=== PATIENT | female | born 2000 ===

== ENCOUNTER 2021-10-27 05:46 | Emergency (ER) | payer MEDICAID ==
[~2021-10-27] VITALS: Ht 160 cm; Wt 107.5 kg
[2021-10-27 07:32] VITALS: BP 121/67
== END 2021-10-27 07:32 | disposition home or self-care (01) ==
LOC: ER 05:46
DX: S60.022A Contusion of left index finger without damage to nail, initial encounter (principal); W23.0XXA Caught, crushed, jammed, or pinched between moving objects, initial encounter; Y93.89 Activity, other specified; Y92.89 Other specified places as the place of occurrence of the external cause; Y99.8 Other external cause status
CPT/HCPCS: 73130

== ENCOUNTER 2022-10-16 04:47 | Emergency (ER) | payer MEDICAID ==
[~2022-10-16] VITALS: Ht 160 cm; Wt 115.0 kg
[2022-10-16 06:41] VITALS: BP 99/73
[2022-10-16] MEDS ORDERED: KETOROLAC TROMETH 60MG/2ML VIAL IM ONE (07:15)
== END 2022-10-16 07:47 | disposition home or self-care (01) ==
LOC: ER 04:47
DX: M54.50 Low back pain, unspecified (principal); F12.10 Cannabis abuse, uncomplicated
CPT/HCPCS: 96372; 99283; J1885